=== PATIENT | male | born 1940 | race Caucasian/White ===

== ENCOUNTER 2021-06-20 05:19 | Inpatient (IN) | payer OTHER ==
[2021-06-20 06:12] LABS: #Basophils 0.1 10x3/uL (0.0-0.2); #Eosinphils 0.5 10x3/uL (0.0-0.5); #Monocytes 1.3 10x3/uL (0.0-1.1); #Neutrophils 13.7 10x3/uL (1.5-8.4); %Basophils 0.3 % (0.0-2.0); %Eosinophils 3.2 % (0.0-6.0); %Lymphocytes 7.6 % (18.0-47.0); %Monocytes 7.8 % (0.0-10.0); %Neutrophils 80.6 % (40.0-75.0); Hemoglobin 10.3 g/dL (13.5-17.5); Mean Corpuscular Hemoglobin 28.8 pg (27.0-33.0); Mean Corpuscular Volume 89.9 fl (81.2-95.1); Mean Platelet Volume 9.9 fl (7.4-10.4); Platelet Count 404 10x3/uL (150-450); RBC Distribution Width 13.5 % (11.5-14.5); Red Blood Cell (RBC) Count 3.58 10x6/uL (4.32-5.72)
[2021-06-20 06:28] LABS: ALT (SGPT) 15 U/L (8-55); AST (SGOT) 11 U/L (5-34); Albumin 2.9 g/dL (3.4-4.8); Alkaline Phosphatase 64 U/L (40-110); Anion Gap 12 mmol/L (10-20); BUN (Urea Nitrogen) 14 mg/dL (8.4-25.7); Bilirubin, Total 0.4 mg/dL (0.2-1.2); Calc. Creatinine Clearance 0 mL/min (70-130); Carbon Dioxide 23 mmol/L (23-31); Chloride 105 mmol/L (98-107); Globulin 3.7 g/dL (2.4-3.5); Glucose 335 mg/dL (83-110); Potassium 4.1 mmol/L (3.5-5.1); Protein, Total 6.6 g/dL (5.8-8.1); Sodium 136 mmol/L (136-145)
[2021-06-20 07:23] LABS: Bilirubin Neg (Negative); Blood, Urine 25 (Negative); Clarity Clear (Clear); Glucose, Urine (Dipstick) >=1000 mg/dL (Negative); Ketone, Urine 5 mg/dL (Negative); Leukocyte Negative (Negative); Nitrite Negative (Negative); Protein, Urine (Dipstick) 15 mg/dl (Neg-Trace); Urobilinogen Normal mg/dL (Less than 2)
[2021-06-20 07:37] LABS: Bacteria/HPF None Seen HPF (None Seen); RBC/HPF 0-3 HPF (0-3); Squamous Epithelial None Seen HPF (0-3); WBC/HPF None Seen HPF (0-3)
[2021-06-20] MEDS ORDERED: Acetaminophen 325 MG TAB PO PRN (10:53)
[2021-06-20] MEDS ORDERED: Dextrose 50% Abboject 50 ML SYRINGE SLOW IVP PRN (10:53)
[2021-06-20] MEDS ORDERED: Ondansetron ODT 4 MG TAB PO PRN (10:53)
[2021-06-20] MEDS ORDERED: Dextrose 5% in Water 1,000 ML IV PRN (10:53)
[2021-06-20] MEDS ORDERED: Insulin Regular 300 UNITS/3 ML VIAL SC PRN (10:53)
[2021-06-20] MEDS ORDERED: Electrolyte Replacement Protocol 1 EACH FS SCH (11:00)
[2021-06-20 11:31] LABS: Magnesium 1.9 mg/dL (1.6-2.6)
[2021-06-20 11:53] VITALS: BMI 34.6
[2021-06-20] MEDS ORDERED: Ivermectin 3 MG TAB PO SCH (12:00)
[2021-06-20] MEDS ORDERED: Magnesium Oxide 400 MG TAB PO SCH (13:00)
[2021-06-20] MEDS ORDERED: Potassium Chloride 20 MEQ TAB PO SCH (13:00)
[2021-06-20] MEDS ORDERED: Magnesium 2 GM/50 ML 2 GM in Premix Bag 1 BAG IVPB SCH (13:00)
[2021-06-20] MEDS ORDERED: Permethrin 5% Cream 60 GM TUBE TOP SCH (13:00)
[2021-06-20] MEDS ORDERED: VANCOMYCIN 1.75 GM/350 ML BAG 1.75 GM in Premix Bag 1 BAG IVPB SCH (14:00)
[2021-06-20] MEDS ORDERED: Vancomycin 1.5 GRAM/300 ML BAG 1.5 GM in Premix Bag 1 BAG IVPB SCH (14:00)
[2021-06-20] MEDS: Clindamycin/D5W 600 MG in Premix Bag 1 BAG IVPB SCH ×2 (14:29→21:49)
[2021-06-20] MEDS: HumaLOG 300 UNITS/3 ML VIAL SC PRN ×2 (15:37→22:47)
[2021-06-20] MEDS: Enoxaparin Sodium 120 MG/0.8 ML SYRINGE SC SCH (21:49)
[2021-06-20 22:54] LABS: SARS-CoV-2 PCR by NAA DETECTED (NotDetected)
[2021-06-21] MEDS: Clindamycin/D5W 600 MG in Premix Bag 1 BAG IVPB SCH ×3 (05:25→22:26)
[2021-06-21 05:37] LABS: Anion Gap 13 mmol/L (10-20); BUN (Urea Nitrogen) 11 mg/dL (8.4-25.7); Calc. Creatinine Clearance 96 mL/min (70-130); Calcium 8.2 mg/dL (7.8-10.44); Carbon Dioxide 23 mmol/L (23-31); Cardiac Risk 4.5 (Less than 4.5); Chloride 107 mmol/L (98-107); Cholesterol 108 mg/dl (< 200 Desired); Glucose 300 mg/dL (83-110); HDL Cholesterol 24 mg/dL (>60 Neg Risk); LDL Cholesterol, Calculated 60 mg/dL; Magnesium 2.1 mg/dL (1.6-2.6); Phosphorus 3.3 mg/dL (2.3-4.7); Potassium 4.5 mmol/L (3.5-5.1); Sodium 138 mmol/L (136-145); Triglycerides 119 mg/dL (Less than 150)
[2021-06-21 05:40] LABS: #Eosinphils 1.1 10x3/uL (0.0-0.5); #Monocytes 0.9 10x3/uL (0.0-1.1); #Neutrophils 11.3 10x3/uL (1.5-8.4); %Basophils 0.3 % (0.0-2.0); %Eosinophils 7.5 % (0.0-6.0); %Lymphocytes 8.6 % (18.0-47.0); %Monocytes 6.4 % (0.0-10.0); %Neutrophils 76.6 % (40.0-75.0); Hemoglobin 10.2 g/dL (13.5-17.5); Mean Corpuscular HGB CONC 31.8 g/dL (32.0-36.0); Mean Corpuscular Hemoglobin 28.7 pg (27.0-33.0); Mean Corpuscular Volume 90.2 fl (81.2-95.1); Platelet Count 390 10x3/uL (150-450); RBC Distribution Width 13.5 % (11.5-14.5); Red Blood Cell (RBC) Count 3.56 10x6/uL (4.32-5.72); White Blood Cell (WBC) Count 14.7 10x3/uL (3.5-10.5)
[2021-06-21] MEDS: HumaLOG 300 UNITS/3 ML VIAL SC PRN ×3 (05:53→22:25)
[2021-06-21] MEDS: Enoxaparin Sodium 120 MG/0.8 ML SYRINGE SC SCH ×2 (08:52→22:25)
[2021-06-21] MEDS: Zinc Sulfate 220 MG CAP PO SCH (08:53)
[2021-06-21] MEDS: Ascorbic Acid 500 mg Chewable Tablet PO SCH (08:53)
[2021-06-21 13:04] LABS: Hemoglobin A1c 12.4 % (4.0-6.0)
[2021-06-21] MEDS ORDERED: Vancomycin 1.5 GRAM/300 ML BAG 1.5 GM in Premix Bag 1 BAG IVPB SCH (14:00)
[2021-06-21] MEDS ORDERED: Permethrin 5% Cream 60 GM TUBE TOP SCH (15:00)
[2021-06-21] MEDS ORDERED: Lantus 1000 UNITS/10 ML VIAL SC SCH (21:00)
[2021-06-21] MEDS: Cholecalciferol 1,000 UNITS (25 MCG) TAB PO SCH (22:26)
[2021-06-22 05:27] LABS: Anion Gap 13 mmol/L (10-20); BUN (Urea Nitrogen) 13 mg/dL (8.4-25.7); Calc. Creatinine Clearance 88 mL/min (70-130); Calcium 7.8 mg/dL (7.8-10.44); Carbon Dioxide 22 mmol/L (23-31); Chloride 106 mmol/L (98-107); Glucose 247 mg/dL (83-110); Potassium 4.2 mmol/L (3.5-5.1); Sodium 137 mmol/L (136-145)
[2021-06-22 05:42] LABS: #Eosinphils 1.5 10x3/uL (0.0-0.5); #Monocytes 0.9 10x3/uL (0.0-1.1); #Neutrophils 9.7 10x3/uL (1.5-8.4); %Basophils 0.2 % (0.0-2.0); %Eosinophils 10.4 % (0.0-6.0); %Lymphocytes 13.3 % (18.0-47.0); %Monocytes 6.5 % (0.0-10.0); %Neutrophils 68.6 % (40.0-75.0); Hemoglobin 9.6 g/dL (13.5-17.5); Mean Corpuscular HGB CONC 32.2 g/dL (32.0-36.0); Mean Corpuscular Hemoglobin 29.2 pg (27.0-33.0); Mean Corpuscular Volume 90.6 fl (81.2-95.1); Mean Platelet Volume 10.3 fl (7.4-10.4); Platelet Count 428 10x3/uL (150-450); RBC Distribution Width 13.8 % (11.5-14.5); Red Blood Cell (RBC) Count 3.29 10x6/uL (4.32-5.72); White Blood Cell (WBC) Count 14.1 10x3/uL (3.5-10.5)
[2021-06-22] MEDS: Clindamycin/D5W 600 MG in Premix Bag 1 BAG IVPB SCH ×3 (06:27→22:06)
[2021-06-22] MEDS: Ascorbic Acid 500 mg Chewable Tablet PO SCH (08:41)
[2021-06-22] MEDS: Zinc Sulfate 220 MG CAP PO SCH (08:41)
[2021-06-22] MEDS: Enoxaparin Sodium 120 MG/0.8 ML SYRINGE SC SCH (08:47)
[2021-06-22] MEDS ORDERED: Lantus 1000 UNITS/10 ML VIAL SC SCH (11:59)
[2021-06-22 13:46] LABS: Vancomycin, Trough 6.5 ug/mL
[2021-06-22] MEDS: VANCOMYCIN 1.25 GM/250 ML BAG 1.25 GM in Premix Bag 1 BAG IVPB SCH (15:43)
[2021-06-22] MEDS: HumaLOG 300 UNITS/3 ML VIAL SC PRN (22:00)
[2021-06-22] MEDS: Apixaban 5 MG TAB PO SCH (22:06)
[2021-06-22] MEDS: Cholecalciferol 1,000 UNITS (25 MCG) TAB PO SCH (22:06)
[2021-06-23] MEDS: Clindamycin/D5W 600 MG in Premix Bag 1 BAG IVPB SCH ×3 (05:32→22:21)
[2021-06-23] MEDS: VANCOMYCIN 1.25 GM/250 ML BAG 1.25 GM in Premix Bag 1 BAG IVPB SCH ×2 (05:32→16:12)
[2021-06-23] MEDS: Ascorbic Acid 500 mg Chewable Tablet PO SCH (10:44)
[2021-06-23] MEDS: Apixaban 5 MG TAB PO SCH ×2 (10:44→22:22)
[2021-06-23] MEDS: Zinc Sulfate 220 MG CAP PO SCH (10:45)
[2021-06-23] MEDS ORDERED: diphenhydrAMINE 50 MG/ML VIAL IVP PRN (11:56)
[2021-06-23] MEDS ORDERED: Dexamethasone 6 MG in Sodium Chloride 0.9% 50 ML IVPB SCH (12:00)
[2021-06-23] MEDS ORDERED: Dexamethasone 20 MG/5 ML VIAL SLOW IVP SCH (12:15)
[2021-06-23] MEDS: HumaLOG 300 UNITS/3 ML VIAL SC PRN ×3 (12:47→22:23)
[2021-06-23] MEDS ORDERED: Lantus 1000 UNITS/10 ML VIAL SC SCH (21:00)
[2021-06-23] MEDS: Cholecalciferol 1,000 UNITS (25 MCG) TAB PO SCH (22:22)
[2021-06-24 02:15] LABS: Vancomycin, Trough 28.3 ug/mL
[2021-06-24] MEDS: VANCOMYCIN 1.25 GM/250 ML BAG 1.25 GM in Premix Bag 1 BAG IVPB SCH (03:38)
[2021-06-24 05:47] LABS: Anion Gap 11 mmol/L (10-20); BUN (Urea Nitrogen) 15 mg/dL (8.4-25.7); Calc. Creatinine Clearance 104 mL/min (70-130); Calcium 8.1 mg/dL (7.8-10.44); Carbon Dioxide 24 mmol/L (23-31); Chloride 104 mmol/L (98-107); Glucose 316 mg/dL (83-110); Potassium 4.6 mmol/L (3.5-5.1); Sodium 134 mmol/L (136-145)
[2021-06-24 05:49] LABS: #Eosinphils 0.3 10x3/uL (0.0-0.5); #Monocytes 0.7 10x3/uL (0.0-1.1); #Neutrophils 10.4 10x3/uL (1.5-8.4); %Basophils 0.2 % (0.0-2.0); %Eosinophils 2.3 % (0.0-6.0); %Lymphocytes 9.5 % (18.0-47.0); %Monocytes 5.1 % (0.0-10.0); %Neutrophils 81.7 % (40.0-75.0); Hemoglobin 9.4 g/dL (13.5-17.5); Mean Corpuscular HGB CONC 30.8 g/dL (32.0-36.0); Mean Corpuscular Hemoglobin 28.5 pg (27.0-33.0); Mean Corpuscular Volume 92.4 fl (81.2-95.1); Mean Platelet Volume 10.2 fl (7.4-10.4); Platelet Count 429 10x3/uL (150-450); RBC Distribution Width 13.7 % (11.5-14.5); White Blood Cell (WBC) Count 12.7 10x3/uL (3.5-10.5)
[2021-06-24] MEDS: Clindamycin/D5W 600 MG in Premix Bag 1 BAG IVPB SCH ×3 (06:09→22:02)
[2021-06-24] MEDS ORDERED: Dexamethasone 6 MG in Sodium Chloride 0.9% 50 ML IVPB SCH (09:00)
[2021-06-24] MEDS: Apixaban 5 MG TAB PO SCH ×2 (09:44→22:02)
[2021-06-24] MEDS: Dexamethasone 20 MG/5 ML VIAL SLOW IVP SCH (09:44)
[2021-06-24] MEDS: Ascorbic Acid 500 mg Chewable Tablet PO SCH (09:44)
[2021-06-24] MEDS: Zinc Sulfate 220 MG CAP PO SCH (09:44)
[2021-06-24] MEDS: HumaLOG 300 UNITS/3 ML VIAL SC PRN ×3 (13:07→22:00)
[2021-06-24] MEDS ORDERED: Lantus 1000 UNITS/10 ML VIAL SC SCH (21:00)
[2021-06-24] MEDS: Cholecalciferol 1,000 UNITS (25 MCG) TAB PO SCH (22:02)
[2021-06-25] MEDS: VANCOMYCIN 1.75 GM/350 ML BAG 1.75 GM in Premix Bag 1 BAG IVPB SCH (00:01)
[2021-06-25 01:44] LABS: Vancomycin, Trough 27.8 ug/mL
[2021-06-25] MEDS: Clindamycin/D5W 600 MG in Premix Bag 1 BAG IVPB SCH ×3 (07:04→21:55)
[2021-06-25] MEDS: Zinc Sulfate 220 MG CAP PO SCH (08:21)
[2021-06-25] MEDS: Ascorbic Acid 500 mg Chewable Tablet PO SCH (08:21)
[2021-06-25] MEDS: Dexamethasone 20 MG/5 ML VIAL SLOW IVP SCH (08:21)
[2021-06-25] MEDS: Apixaban 5 MG TAB PO SCH ×2 (08:21→21:54)
[2021-06-25] MEDS: HumaLOG 300 UNITS/3 ML VIAL SC PRN ×2 (14:54→21:51)
[2021-06-25] MEDS: Lantus 1000 UNITS/10 ML VIAL SC SCH (21:53)
[2021-06-25] MEDS: Cholecalciferol 1,000 UNITS (25 MCG) TAB PO SCH (21:54)
[2021-06-26 01:22] LABS: #Monocytes 0.8 10x3/uL (0.0-1.1); #Neutrophils 10.7 10x3/uL (1.5-8.4); %Basophils 0.2 % (0.0-2.0); %Eosinophils 0.3 % (0.0-6.0); %Lymphocytes 11.4 % (18.0-47.0); %Monocytes 6.2 % (0.0-10.0); %Neutrophils 80.6 % (40.0-75.0); Hemoglobin 9.3 g/dL (13.5-17.5); Mean Corpuscular HGB CONC 31.5 g/dL (32.0-36.0); Mean Corpuscular Hemoglobin 28.8 pg (27.0-33.0); Mean Corpuscular Volume 91.3 fl (81.2-95.1); Platelet Count 448 10x3/uL (150-450); RBC Distribution Width 13.8 % (11.5-14.5); Red Blood Cell (RBC) Count 3.23 10x6/uL (4.32-5.72); White Blood Cell (WBC) Count 13.3 10x3/uL (3.5-10.5)
[2021-06-26 01:35] LABS: Vancomycin, Trough 11.7 ug/mL
[2021-06-26 01:54] LABS: Anion Gap 10 mmol/L (10-20); BUN (Urea Nitrogen) 19 mg/dL (8.4-25.7); Calc. Creatinine Clearance 108 mL/min (70-130); Calcium 8.1 mg/dL (7.8-10.44); Carbon Dioxide 25 mmol/L (23-31); Chloride 102 mmol/L (98-107); Glucose 293 mg/dL (83-110); Potassium 4.1 mmol/L (3.5-5.1); Sodium 133 mmol/L (136-145)
[2021-06-26] MEDS: VANCOMYCIN 1.75 GM/350 ML BAG 1.75 GM in Premix Bag 1 BAG IVPB SCH (02:24)
[2021-06-26] MEDS: Ascorbic Acid 500 mg Chewable Tablet PO SCH (08:44)
[2021-06-26] MEDS: Dexamethasone 20 MG/5 ML VIAL SLOW IVP SCH (08:44)
[2021-06-26] MEDS: Zinc Sulfate 220 MG CAP PO SCH (08:44)
[2021-06-26] MEDS: Clindamycin/D5W 600 MG in Premix Bag 1 BAG IVPB SCH (08:44)
[2021-06-26] MEDS: Apixaban 5 MG TAB PO SCH ×2 (08:44→22:06)
[2021-06-26] MEDS: CEFAZOLIN 2 GM in Premix Bag 1 BAG IVPB SCH ×2 (12:10→22:06)
[2021-06-26] MEDS: Lantus 1000 UNITS/10 ML VIAL SC SCH (21:58)
[2021-06-26] MEDS: HumaLOG 300 UNITS/3 ML VIAL SC PRN (21:59)
[2021-06-26] MEDS: Cholecalciferol 1,000 UNITS (25 MCG) TAB PO SCH (22:06)
[2021-06-27 05:03] LABS: Anion Gap 11 mmol/L (10-20); BUN (Urea Nitrogen) 19 mg/dL (8.4-25.7); Calc. Creatinine Clearance 86 mL/min (70-130); Calcium 8.3 mg/dL (7.8-10.44); Carbon Dioxide 25 mmol/L (23-31); Chloride 106 mmol/L (98-107); Glucose 239 mg/dL (83-110); Potassium 4.8 mmol/L (3.5-5.1); Sodium 137 mmol/L (136-145)
[2021-06-27 05:48] LABS: #Eosinphils 0.2 10x3/uL (0.0-0.5); #Monocytes 1.2 10x3/uL (0.0-1.1); #Neutrophils 12.8 10x3/uL (1.5-8.4); %Basophils 0.2 % (0.0-2.0); %Eosinophils 0.9 % (0.0-6.0); %Lymphocytes 15.5 % (18.0-47.0); %Monocytes 6.7 % (0.0-10.0); %Neutrophils 74.9 % (40.0-75.0); Mean Corpuscular HGB CONC 30.8 g/dL (32.0-36.0); Mean Corpuscular Hemoglobin 28.5 pg (27.0-33.0); Mean Corpuscular Volume 92.6 fl (81.2-95.1); Mean Platelet Volume 10.4 fl (7.4-10.4); Platelet Count 481 10x3/uL (150-450); RBC Distribution Width 14.1 % (11.5-14.5); Red Blood Cell (RBC) Count 3.51 10x6/uL (4.32-5.72); White Blood Cell (WBC) Count 17.1 10x3/uL (3.5-10.5)
[2021-06-27] MEDS: CEFAZOLIN 2 GM in Premix Bag 1 BAG IVPB SCH ×3 (06:12→22:38)
[2021-06-27] MEDS: Dexamethasone 20 MG/5 ML VIAL SLOW IVP SCH (08:14)
[2021-06-27] MEDS: Ascorbic Acid 500 mg Chewable Tablet PO SCH (08:14)
[2021-06-27] MEDS: Apixaban 5 MG TAB PO SCH ×2 (08:14→20:47)
[2021-06-27] MEDS: Zinc Sulfate 220 MG CAP PO SCH (08:14)
[2021-06-27] MEDS: HumaLOG 300 UNITS/3 ML VIAL SC PRN ×3 (12:30→20:47)
[2021-06-27 18:52] LABS: Syphilis Antibody Nonreactive (Nonreactive); Syphilis Antibody Index 0.03 S/CO (<1.00 Non-Reactive)
[2021-06-27 18:53] LABS: HIV (1/2) Antibody/Antigen Non-Reactive (NonReactive); HIV 1/2 INDEX 0.15 S/CO (<1.00); Hep B Surf Ag Non-Reactive S/CO (NonReactive)
[2021-06-27] MEDS: Lantus 1000 UNITS/10 ML VIAL SC SCH (20:47)
[2021-06-27] MEDS: Cholecalciferol 1,000 UNITS (25 MCG) TAB PO SCH (20:47)
[2021-06-28] MEDS: CEFAZOLIN 2 GM in Premix Bag 1 BAG IVPB SCH ×3 (06:26→21:32)
[2021-06-28] MEDS: HumaLOG 300 UNITS/3 ML VIAL SC PRN ×3 (06:46→22:30)
[2021-06-28] MEDS: Zinc Sulfate 220 MG CAP PO SCH (10:37)
[2021-06-28] MEDS: Ascorbic Acid 500 mg Chewable Tablet PO SCH (10:38)
[2021-06-28] MEDS: Apixaban 5 MG TAB PO SCH ×2 (10:38→21:33)
[2021-06-28] MEDS: Dexamethasone 20 MG/5 ML VIAL SLOW IVP SCH (10:38)
[2021-06-28 13:38] LABS: HBSAB Concentration Less than 8.00 mIU/mL; Hep B Surf AB Non-Reactive (NonReactive); Hep C IgG Ab Non-Reactive (NonReactive); Hep C Index 0.14 S/CO (0-0.79)
[2021-06-28] MEDS: Cholecalciferol 1,000 UNITS (25 MCG) TAB PO SCH (21:33)
[2021-06-28] MEDS: Lantus 1000 UNITS/10 ML VIAL SC SCH (22:30)
[2021-06-29] MEDS: CEFAZOLIN 2 GM in Premix Bag 1 BAG IVPB SCH ×3 (05:13→22:51)
[2021-06-29] MEDS: HumaLOG 300 UNITS/3 ML VIAL SC PRN ×4 (06:00→23:19)
[2021-06-29 06:01] LABS: #Eosinphils 0.1 10x3/uL (0.0-0.5); #Monocytes 1.1 10x3/uL (0.0-1.1); #Neutrophils 13.9 10x3/uL (1.5-8.4); %Basophils 0.1 % (0.0-2.0); %Eosinophils 0.5 % (0.0-6.0); %Lymphocytes 13.6 % (18.0-47.0); %Monocytes 6.4 % (0.0-10.0); Hemoglobin 9.7 g/dL (13.5-17.5); Mean Corpuscular HGB CONC 31.6 g/dL (32.0-36.0); Mean Corpuscular Hemoglobin 28.7 pg (27.0-33.0); Mean Corpuscular Volume 90.8 fl (81.2-95.1); Mean Platelet Volume 10.7 fl (7.4-10.4); Platelet Count 517 10x3/uL (150-450); RBC Distribution Width 14.6 % (11.5-14.5); Red Blood Cell (RBC) Count 3.38 10x6/uL (4.32-5.72); White Blood Cell (WBC) Count 17.7 10x3/uL (3.5-10.5)
[2021-06-29 06:25] LABS: Anion Gap 12 mmol/L (10-20); BUN (Urea Nitrogen) 23 mg/dL (8.4-25.7); Calc. Creatinine Clearance 102 mL/min (70-130); Calcium 8.2 mg/dL (7.8-10.44); Carbon Dioxide 26 mmol/L (23-31); Chloride 101 mmol/L (98-107); Glucose 240 mg/dL (83-110); Potassium 4.2 mmol/L (3.5-5.1); Sodium 135 mmol/L (136-145)
[2021-06-29] MEDS: Ascorbic Acid 500 mg Chewable Tablet PO SCH (08:40)
[2021-06-29] MEDS: Zinc Sulfate 220 MG CAP PO SCH (08:40)
[2021-06-29] MEDS: Apixaban 5 MG TAB PO SCH ×2 (08:41→22:50)
[2021-06-29] MEDS: Dexamethasone 20 MG/5 ML VIAL SLOW IVP SCH (08:41)
[2021-06-29] MEDS: Cholecalciferol 1,000 UNITS (25 MCG) TAB PO SCH (22:50)
[2021-06-29] MEDS: Triamcinolone 0.1% Cream 15 GM TUBE TOP SCH (22:52)
[2021-06-29] MEDS: Lantus 1000 UNITS/10 ML VIAL SC SCH (22:53)
[2021-06-30] MEDS: CEFAZOLIN 2 GM in Premix Bag 1 BAG IVPB SCH ×3 (05:41→22:42)
[2021-06-30] MEDS: HumaLOG 300 UNITS/3 ML VIAL SC PRN ×3 (06:10→22:44)
[2021-06-30 10:33] LABS: INR-International Normal Ratio 1.1; Prothrombin Time 11.6 sec (9.5-12.1)
[2021-06-30] MEDS: Apixaban 5 MG TAB PO SCH ×2 (10:55→22:41)
[2021-06-30] MEDS: Ascorbic Acid 500 mg Chewable Tablet PO SCH (10:55)
[2021-06-30] MEDS: Zinc Sulfate 220 MG CAP PO SCH (10:55)
[2021-06-30] MEDS: Dexamethasone 20 MG/5 ML VIAL SLOW IVP SCH (10:55)
[2021-06-30] MEDS: Triamcinolone 0.1% Cream 15 GM TUBE TOP SCH ×2 (10:55→23:28)
[2021-06-30 11:44] LABS: Lavender RECEIVED; Red RECEIVED
[2021-06-30] MEDS ORDERED: Sodium Bicarbonate 2.5 MEQ/5 ML VIAL ONE (11:51)
[2021-06-30] MEDS ORDERED: Lidocaine 1% PF 5 ML VIAL ONE (11:51)
[2021-06-30] MEDS: Cholecalciferol 1,000 UNITS (25 MCG) TAB PO SCH (22:40)
[2021-06-30] MEDS: Lantus 1000 UNITS/10 ML VIAL SC SCH (22:43)
[2021-07-01] MEDS: CEFAZOLIN 2 GM in Premix Bag 1 BAG IVPB SCH (05:01)
[2021-07-01 05:36] VITALS: BP 149/77; TEMP 97.8
[2021-07-01] MEDS: HumaLOG 300 UNITS/3 ML VIAL SC PRN (05:40)
== END 2021-07-01 07:45 | DRG 308 ==
LOC: EEVIPCON 05:19 → CSHERS 05:19 → CSHTELE 09:21
PROVIDERS: ADMIT Family Medicine; ATTEND Family Medicine
PROC: 8E0ZXY6 Isolation (ICD-10-PCS; 2021-06-20)
PROC: 02HV33Z Insertion of Infusion Device into Superior Vena Cava, Percutaneous Approach (ICD-10-PCS; principal; 2021-06-30)
PROC: B5181ZA Fluoroscopy of Superior Vena Cava using Low Osmolar Contrast, Guidance (ICD-10-PCS; 2021-06-30)
PROC: B548ZZA Ultrasonography of Superior Vena Cava, Guidance (ICD-10-PCS; 2021-06-30)
DX: I48.91 Unspecified atrial fibrillation (principal); U07.1 COVID-19; J96.01 Acute respiratory failure with hypoxia; R78.81 Bacteremia; I10 Essential (primary) hypertension; E78.5 Hyperlipidemia, unspecified; R29.6 Repeated falls; K21.9 Gastro-esophageal reflux disease without esophagitis; E66.9 Obesity, unspecified; L29.9 Pruritus, unspecified; R21 Rash and other nonspecific skin eruption; E11.65 Type 2 diabetes mellitus with hyperglycemia; J39.8 Other specified diseases of upper respiratory tract; M19.90 Unspecified osteoarthritis, unspecified site; E07.9 Disorder of thyroid, unspecified; B86 Scabies; B95.61 Methicillin susceptible Staphylococcus aureus infection as the cause of diseases classified elsewhere; Z79.4 Long term (current) use of insulin; Z88.0 Allergy status to penicillin; Z79.82 Long term (current) use of aspirin; Z68.34 Body mass index [BMI] 34.0-34.9, adult; Z79.899 Other long term (current) drug therapy; Z90.49 Acquired absence of other specified parts of digestive tract; Z98.890 Other specified postprocedural states; Z66 Do not resuscitate
CPT/HCPCS: 36415; 36416; 36569; 70450; 71045; 71260; 74176; 80048; 80053; 80061; 80202; 81003; 81015; 83036; 83605; 83735; 83880; 84100; 84439; 84443; 84481; 84484; 85025; 85610; 86140; 86706; 86780; 86803; 87040; 87070; 87077; 87086; 87149; 87186; 87205; 87340; 87389; 93005; 93010; 93306; 94760; C1751; J0690; J1100; J1200; J1650; J1815; J3370; J3475; J3490; U0003; U0005

== ENCOUNTER 2021-11-19 12:16 | Emergency (ER) | payer OTHER ==
[2021-11-19] MEDS ORDERED: Ondansetron PF 4 MG/2 ML Vial ONE (13:03)
[2021-11-19 13:05] LABS: #Monocytes 0.5 10x3/uL (0.0-1.1); #Neutrophils 7.1 10x3/uL (1.5-8.4); %Basophils 0.2 % (0.0-2.0); %Eosinophils 0.5 % (0.0-6.0); %Lymphocytes 4.5 % (18.0-47.0); %Monocytes 6.4 % (0.0-10.0); %Neutrophils 88.2 % (40.0-75.0); Hemoglobin 12.7 g/dL (13.5-17.5); Mean Corpuscular HGB CONC 33.6 g/dL (32.0-36.0); Mean Corpuscular Hemoglobin 29.1 pg (27.0-33.0); Mean Corpuscular Volume 86.5 fl (81.2-95.1); Mean Platelet Volume 11.1 fl (7.4-10.4); Platelet Count 278 10x3/uL (150-450); Red Blood Cell (RBC) Count 4.37 10x6/uL (4.32-5.72)
[2021-11-19 13:20] LABS: ALT (SGPT) 16 U/L (8-55); AST (SGOT) 19 U/L (5-34); Alkaline Phosphatase 61 U/L (40-110); Anion Gap 15 mmol/L (10-20); BUN (Urea Nitrogen) 25 mg/dL (8.4-25.7); Bilirubin, Total 0.5 mg/dL (0.2-1.2); Calc. Creatinine Clearance 0 mL/min (70-130); Calcium 8.9 mg/dL (7.8-10.44); Carbon Dioxide 25 mmol/L (23-31); Chloride 102 mmol/L (98-107); Glucose 200 mg/dL (83-110); Lipase 20 U/L (8-78); Sodium 138 mmol/L (136-145)
[2021-11-19] MEDS ORDERED: Iopamidol 300 61% 100 ML VIAL FS ONE (15:03)
== END 2021-11-19 16:40 | disposition home or self-care (01) ==
LOC: CSHERS 12:16 → EEVIPCON 12:16 → CSHERS 16:40
DX: B34.9 Viral infection, unspecified (principal); E78.5 Hyperlipidemia, unspecified; E11.9 Type 2 diabetes mellitus without complications; I10 Essential (primary) hypertension; K21.9 Gastro-esophageal reflux disease without esophagitis; M19.90 Unspecified osteoarthritis, unspecified site; E66.9 Obesity, unspecified
CPT/HCPCS: 74177; 80053; 83690; 85025; 96361; 96374; J2405

== ENCOUNTER 2022-02-26 01:29 | Emergency (ER) | payer OTHER ==
[2022-02-26] MEDS ORDERED: Boostrix 0.5 ML (Tdap) VIAL (>/=7 yrs of age) ONE (02:50)
[2022-02-26 03:17] LABS: #Basophils 0.1 10x3/uL (0.0-0.2); #Eosinphils 0.3 10x3/uL (0.0-0.5); #Monocytes 0.7 10x3/uL (0.0-1.1); #Neutrophils 10.4 10x3/uL (1.5-8.4); %Basophils 0.4 % (0.0-2.0); %Eosinophils 2.5 % (0.0-6.0); %Lymphocytes 13.5 % (18.0-47.0); %Monocytes 5.5 % (0.0-10.0); %Neutrophils 77.7 % (40.0-75.0); Hemoglobin 12.7 g/dL (13.5-17.5); Mean Corpuscular HGB CONC 33.9 g/dL (32.0-36.0); Mean Corpuscular Hemoglobin 29.5 pg (27.0-33.0); Mean Corpuscular Volume 87.2 fl (81.2-95.1); Mean Platelet Volume 11.1 fl (7.4-10.4); Platelet Count 283 10x3/uL (150-450); RBC Distribution Width 13.1 % (11.5-14.5); White Blood Cell (WBC) Count 13.4 10x3/uL (3.5-10.5)
[2022-02-26 03:28] LABS: ALT (SGPT) 13 U/L (8-55); AST (SGOT) 13 U/L (5-34); Albumin 3.9 g/dL (3.4-4.8); Alkaline Phosphatase 68 U/L (40-110); Anion Gap 13 mmol/L (10-20); BUN (Urea Nitrogen) 13 mg/dL (8.4-25.7); Bilirubin, Total 0.6 mg/dL (0.2-1.2); Calc. Creatinine Clearance 0 mL/min (70-130); Carbon Dioxide 25 mmol/L (23-31); Chloride 105 mmol/L (98-107); Estimated GFR 88; Globulin 2.8 g/dL (2.4-3.5); Glucose 216 mg/dL (83-110); Potassium 3.9 mmol/L (3.5-5.1); Protein, Total 6.7 g/dL (5.8-8.1); Sodium 139 mmol/L (136-145)
[2022-02-26 03:42] LABS: SARS-CoV-2 NAA Rapid Test Not Detected (NotDetected)
[2022-02-26] MEDS ORDERED: Morphine 4 MG/ML VIAL ONE (11:03)
== END 2022-02-26 11:23 | disposition short-term general hospital (02) ==
LOC: EEVIPCON 01:29 → CSHERS 01:29
DX: S72.044A Nondisplaced fracture of base of neck of right femur, initial encounter for closed fracture (principal); S51.811A Laceration without foreign body of right forearm, initial encounter; S09.90XA Unspecified injury of head, initial encounter; E78.5 Hyperlipidemia, unspecified; E11.9 Type 2 diabetes mellitus without complications; I10 Essential (primary) hypertension; K21.9 Gastro-esophageal reflux disease without esophagitis; Z79.899 Other long term (current) drug therapy; Z79.82 Long term (current) use of aspirin; Z79.4 Long term (current) use of insulin; Z79.84 Long term (current) use of oral hypoglycemic drugs; W19.XXXA Unspecified fall, initial encounter
CPT/HCPCS: 70450; 80053; 85025; 90471; 90715; 93005; 96374; J2270; U0002